=== PATIENT | male | born 1990 | race Caucasian/White ===

== ENCOUNTER 2016-10-13 20:11 | Emergency (ER) | payer MEDICAID ==
[~2016-10-13] VITALS: Ht 165.1 cm; Wt 70.8 kg
[2016-10-13 22:12] VITALS: BP 122/74
== END 2016-10-13 22:12 | disposition home or self-care (01) ==
LOC: ED 20:11
DX: S86.911A Strain of unspecified muscle(s) and tendon(s) at lower leg level, right leg, initial encounter (principal); Y93.66 Activity, soccer; Y99.8 Other external cause status; Y92.89 Other specified places as the place of occurrence of the external cause

== ENCOUNTER 2016-10-28 09:50 | Emergency (ER) | payer MEDICAID ==
[2016-10-28 10:56] VITALS: BP 125/78
== END 2016-10-28 10:56 | disposition home or self-care (01) ==
LOC: ED 09:50
DX: J45.901 Unspecified asthma with (acute) exacerbation (principal)
CPT/HCPCS: J7512; J7613; J7644; Q0092

== ENCOUNTER 2016-11-08 12:13 | Emergency (ER) | payer MEDICAID ==
[~2016-11-08] VITALS: Ht 165.1 cm; Wt 69.9 kg
[2016-11-08 12:27] VITALS: BP 117/78
== END 2016-11-08 13:26 | disposition left against medical advice (07) ==
LOC: ED 12:13
DX: Z53.21 Procedure and treatment not carried out due to patient leaving prior to being seen by health care provider (principal)

== ENCOUNTER 2016-12-02 04:22 | Emergency (ER) | payer MEDICAID ==
[2016-12-02 05:40] VITALS: BP 132/99
== END 2016-12-02 05:40 | disposition home or self-care (01) ==
LOC: ED 04:22
DX: J45.901 Unspecified asthma with (acute) exacerbation (principal)
CPT/HCPCS: J7512; J7620; Q0092

== ENCOUNTER 2017-01-10 10:06 | Emergency (ER) | payer MEDICAID ==
[~2017-01-10] VITALS: Ht 165.1 cm; Wt 69.6 kg
[2017-01-10 11:20] VITALS: BP 116/82
== END 2017-01-10 11:34 | disposition home or self-care (01) ==
LOC: ED 10:06
DX: J45.901 Unspecified asthma with (acute) exacerbation (principal); F17.200 Nicotine dependence, unspecified, uncomplicated; Z71.6 Tobacco abuse counseling
CPT/HCPCS: 99406; J7512; J7613

== ENCOUNTER 2017-02-15 08:31 | Emergency (ER) | payer MEDICAID ==
[2017-02-15 09:48] VITALS: BP 138/89
== END 2017-02-15 10:00 | disposition home or self-care (01) ==
LOC: ED 08:31
DX: J45.901 Unspecified asthma with (acute) exacerbation (principal); R03.0 Elevated blood-pressure reading, without diagnosis of hypertension
CPT/HCPCS: J7512; J7613; J7644

== ENCOUNTER 2017-04-06 12:37 | Emergency (ER) | payer MEDICAID ==
[~2017-04-06] VITALS: Ht 165.1 cm; Wt 75.3 kg
[2017-04-06 12:40] VITALS: BP 116/68
== END 2017-04-06 15:37 | disposition home or self-care (01) ==
LOC: ED 12:37
DX: J45.901 Unspecified asthma with (acute) exacerbation (principal)
CPT/HCPCS: J7512; J7613; J7644

== ENCOUNTER 2017-04-25 19:24 | Emergency (ER) | payer MEDICAID | END 2017-04-25 21:24 | disposition left against medical advice (07) | LOC: ED 19:24 | DX: Z53.21 Procedure and treatment not carried out due to patient leaving prior to being seen by health care provider (principal) ==

== ENCOUNTER 2017-05-21 19:10 | Emergency (ER) | payer MEDICAID ==
[2017-05-21 20:51] LABS: microscopic required? YES; urine erythrocyte 2+ (NEGATIVE)
[2017-05-21 20:54] LABS: BASOPHIL % 0.4 % (0-2); PLATELET COUNT 166 x10^3mcL (130-400); RED CELL DISTRIBUTION WIDTH 13.1 % (11.5-14.5)
[2017-05-21 23:48] VITALS: BP 119/56
== END 2017-05-21 23:48 | disposition home or self-care (01) ==
LOC: ED 19:10
PROVIDERS: Emergency Medicine
DX: N45.1 Epididymitis (principal); J45.909 Unspecified asthma, uncomplicated
CPT/HCPCS: 87491; 87591; 87804; J0696; Q0162

== ENCOUNTER 2017-05-22 19:12 | Emergency (ER) | payer MEDICAID ==
[~2017-05-22] VITALS: Ht 165.1 cm; Wt 55.0 kg
[2017-05-22 19:15] VITALS: Ht 165.1 cm; Wt 55.0 kg
[2017-05-22 20:40] VITALS: BP 127/74
== END 2017-05-22 20:40 | disposition home or self-care (01) ==
LOC: ED 19:12
DX: Z76.0 Encounter for issue of repeat prescription (principal); J45.901 Unspecified asthma with (acute) exacerbation
CPT/HCPCS: J7512; J7613